=== PATIENT | female | born 1950 | race African-American/Black ===

== ENCOUNTER 2017-12-02 01:51 | Emergency (ER) | payer OTHER ==
[~2017-12-02] VITALS: Ht 165.1 cm; Wt 79.4 kg
--- NOTE | ~2017-12-02 | EKG ---
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1950 Requested By: Tiffanie Chris Order Number: [id number] MD: Carrillo Downing Measurements Intervals [place] Rate: 80 P: 85 OK: 141 QRS: 50 QRSD: 81 T: 77 QT: 382 QTc: 441 Interpretive Statements Sinus rhythm Nonspecific repol abnormality, diffuse leads Compared to ECG 12/24/2011 00:49:54 No significant change was found Electronically Signed On 12-02-2017 17:21:54 CDT by Carrillo Downing [email or web address] <ELECTRONICALLY SIGNED> By: Carrillo Downing MD, [facility] 12/02/17 1721 0158 7 Carrillo Downing MD, FACC /EPI
[~2017-12-02 01:51] MED LIST: CARAFATE 1 GM TA1 G1 PO; PROTONIX 20 MG20 MG PO; PROTONIX40 M2 PO; ZESTORETIC 20-1 EAC1 PO; ZOCOR 20 MG TAB20 M1 PO
[2017-12-02 02:17] LABS: ABSOLUTE NEUTROPHILS 4.8 thou/uL (1.4-8.2); BASOPHILS 0.8 % (0.0-2.0); LYMPHOCYTES 34.7 % (24.0-44.0); MCH 30.3 pg (26.0-34.0); MCHC 34.1 g/dL (28.0-37.0); MCV 88.9 fL (80.0-100.0); MONOCYTES 6.9 % (1.0-8.0); PLATELET COUNT 228 thou/uL (150-400); POLYS 56.6 % (36.0-66.0); RBC 4.27 mil/uL (4.20-5.00); RDW 13.1 % (10.5-14.5); WBC 8.5 thou/uL (4.0-11.0)
[2017-12-02 02:29] LABS: ANION GAP 9 mmol/L (7-16); BUN 20 mg/dL (7-18); CALCIUM 9.1 mg/dL (8.5-10.1); CHLORIDE 103 mmol/L (98-107); CO2 27 mmol/L (21-32); GLUCOSE 117 mg/dL (74-106); POTASSIUM 3.5 mmol/L (3.5-5.1); SODIUM 139 mmol/L (136-145)
[2017-12-02 02:37] LABS: TROPONIN-I < 0.04 ng/mL (<0.06)
[2017-12-02 03:35] LABS: URINE BILIRUBIN NEGATIVE (Negative); URINE BLOOD NEGATIVE (Negative); URINE CLARITY CLEAR; URINE COLOR YELLOW; URINE GLUCOSE-RANDOM* NEGATIVE (Negative); URINE KETONES NEGATIVE (Negative); URINE LEUKOCYTES NEGATIVE (Negative); URINE NITRITE NEGATIVE (Negative); URINE PROTEIN (DIPSTICK) NEGATIVE (Negative); URINE SPECIFIC GRAVITY <= 1.005 (1.005-1.035); URINE UROBILINOGEN 0.2 E.U./dl (0.2-1.0)
[2017-12-02 03:51] VITALS: BP 135/86
== END 2017-12-02 03:53 | disposition home or self-care (01) ==
LOC: ER 01:51
PROVIDERS: Emergency Medicine
DX: I10 Essential (primary) hypertension (principal); E34.0 Carcinoid syndrome; E78.00 Pure hypercholesterolemia, unspecified; Z88.2 Allergy status to sulfonamides; Z88.5 Allergy status to narcotic agent